=== PATIENT | male | born 1950 | race Caucasian/White ===

== ENCOUNTER 2018-04-23 21:08 | Inpatient (IN) | payer MEDICARE ==
[~2018-04-23] VITALS: Ht 162.6 cm; Wt 91.8 kg
--- NOTE | ~2018-04-23 | HEMODYNAMI ---
PATIENT:JANAY AUGUST MEDICAL RECORD: [id number] : 54 [id number] ADMISSION DATE: 04/23/18 Generatedon:04/24/20188:29 Patient name: JANAY AUGUST Patient #: [id number] SSN: : 1950 Date of study: 04/24/2018 Page: Of Hemodynamic Procedure Report Patient Data Patient Demographics Procedure consent was obtained First Name: JANAY Gender: Male Last Name: MATA : 1950 Middle Initial: L Age: 68 year(s) Patient #: [id number] Race: Unknown Additional ID: [id number] Contact details Address: [address] [place] [address] State: [place] City: [place] Zip code: [address] Admission Admission Data Admission Date: 04/23/2018 Admission Time: 22:45 Room #: D.2132 Weight (lbs.): 207.24 Weight (kg.): 94 Lab Results Lab Result Date: 04/24/2018 Lab Result Time: 0:00 Biochemistry Name Units Result Min Max BUN mg/dl 11 --(-*--)-- 7 18 Creatinine mg/dl 1 --(--*-)-- 0.6 1.3 CBC Name Units Result Min Max Hemoglobin g/dl 16.4 --(--*-)-- 13.5 17.5 Procedure Procedure Types Cath Procedure Diagnostic Procedure C LH w/Coronaries Sedation Charges Moderate Sedation up to 15 minutes Procedure Description Procedure Date Procedure Date: 04/24/2018 Procedure Start Time: 8:06 Procedure End Time: 8:29 Procedure Staff Name Function Manuel Emmanuel MD Performing Physician Do Galo RN Nurse Rick Hollins RT Scrub Bobby Noyola RT Monitor Ana Cates RT Monitor Procedure Data Cath Procedure Fluoroscopy Diagnostic fluoroscopy Total fluoroscopy Time: 3.3 time: 3.3 min min Diagnostic fluoroscopy Total fluoroscopy dose: 957 dose: 957 mGy mGy Contrast Material Contrast Material Type Amount (ml) Isovue 300 67 Entry Location Entry Primary Successful Side Size Upsize Upsize Entry Closure Yee ccessful Closure Location (Fr) 1 (Fr) 2 (Fr) Remarks Device Remarks Radial Right 6 Fr Mechanical artery Short Compression Estimated blood loss: 10 ml Diagnostic catheters Device Type Used For End Catheter Placement DIAGNOSTIC Al 110cm Procedure 5Fr catheter ([id number]) Procedure Complications No complications Procedure Medications Medication Administration Route Dosage 0.9% NaCl I.V. 100 ml/hr Oxygen etCO2 Nasal cannula 3 l/min Lidocaine 2% added to field 20 Heparin Flush Bag added to field 2 bags (1000units/500ml NS) Radial Cocktail added to field 1 syringe (Verapomil 2mg/Nitro 400mcg/Heparin 1500units) Versed I.V. 2 mg Fentanyl I.V. 50 mcg Versed I.V. 2 mg Fentanyl I.V. 50 mcg Hemodynamics Rest HGB: 16.4 (g/dl) Heart Rate: 69 (bpm) Pressure Samples Time Site Value (mmHg) Purpose Heart Use Rate(bpm) 8:09 AO 99/57(68) Pullback 88 Gradients Valve Time Site Site 2 Mean SEP/DFP Peak To Heart Use 1 (mmHg) (sec/min) Peak Rate (mmHg) (bpm) Aortic 8:09 LV AO 8 28 88 99/57(68) Calculations Valve P-P Mean Valve Index Valve Source Name Gradient Area Flow (cm2) Aortic 8 8 Snapshots Pre Cath Intra NCS Post Cath Vital Signs Time Heart Resp SPO2 etCO2 NIBP (mmHg) Rhythm Pain Sedation Rate (ipm) (%) (mmHg) Status Level (bpm) 7:55:02 67 24 98 33.1 155/94(118) NSR 0 (11) 10(A) , No pain 7:59:22 75 23 96 31.6 149/94(113) NSR 0 (11) 10(A) , No pain 8:03:38 77 16 97 33.9 145/92(115) NSR 0 (11) 10(A) , No pain 8:07:56 82 13 98 33.9 126/65(79) NSR 0 (11) 10(A) , No pain 8:12:14 83 15 98 33.9 120/71(88) NSR 0 (11) 9(A) , No pain 8:16:30 81 14 97 30.9 133/69(103) NSR 0 (11) 9(A) , No pain 8:20:50 76 14 97 30.1 121/70(95) NSR 0 (11) 10(A) , No pain 8:25:04 76 14 92 31.6 118/73(94) NSR 0 (11) 10(A) , No pain 8:29:16 71 15 93 30.9 120/77(98) NSR 0 (11) 10(A) , No pain Medications Time Medication Route Dose Verified Delivered Reason Notes Ef fectiveness by by 7:54:07 0.9% NaCl I.V. 100 Manuel Do used for ml/hr Cholo Galo energy broker 7:54:17 Oxygen etCO2 3 l/min Manuel Do used for Nasal Cholo Galo procedure cannula RN 7:54:22 Lidocaine 2% added 20ml Manuel Manuel for local to vial Cholo Emmanuel MD anesthetic field 7:54:26 Heparin Flush added 2 bags Manuel Manuel used for Bag to Cholo Emmanuel MD procedure (1000units/500ml field NS) 7:54:31 Radial Cocktail added 1 Manuel Manuel used for (Verapomil to syringe Cholo Emmanuel MD procedure 2mg/Nitro field 400mcg/Heparin 1500units) 8:01:18 Versed I.V. 2 mg Manuel Do for Cholo Galo sedation RN 8:01:24 Fentanyl I.V. 50 mcg Manuel Do for Cholo Galo sedation RN 8:09:04 Versed I.V. 2 mg Manuel Do for Cholo Galo sedation RN 8:09:10 Fentanyl I.V. 50 mcg Manuel Do for Cholo Galo sedation engagement lead Log Time Note 7:30:49 Bobby Noyola RT(R) sent for patient. Start room use. 7:35:51 Time tracking: Regular hours (M-F 7:00 - 5:00) 7:35:55 Plan of Care:Hemodynamics will remain stable., Cardiac rhythm will remain stable., Comfort level will be maintained., Respiratory function will remain adequate., Patient/ family verbilizes understanding of procedure., Procedure tolerated without complication., Recovers from procedure without complications.. 7:45:26 Patient received from Med II to CCL 1 Alert and oriented. Tansferred to table in Supine position. 7:45:28 Warm blankets applied, and nba hugger turned on for patient comfort. 7:45:28 Correct patient and procedure confirmed by team. 7:45:29 Signed procedure consent form obtained from patient. 7:45:31 ECG and BP/O2 sat monitors applied to patient. 7:45:35 Pre-procedure instructions explained to patient. 7:45:35 Pre-op teaching completed and patient verbalized understanding. 7:53:48 Vital chart was started 7:54:07 0.9% NaCl 100 ml/hr I.V. was administered by Do Galo RN; used for procedure; 7:54:17 Oxygen 3 l/min etCO2 Nasal cannula was administered by Do Galo RN; used for procedure; 7:54:22 Lidocaine 2% 20ml vial added to field was administered by Manuel Emmanuel MD; for local anesthetic; 7:54:26 Heparin Flush Bag (1000units/500ml NS) 2 bags added to field was administered by Manuel Emmanuel MD; used for procedure; 7:54:31 Radial Cocktail (Verapomil 2mg/Nitro 400mcg/Heparin 1500units) 1 syringe added to field was administered by Manuel Emmanuel MD; used for procedure; 7:54:43 Baseline sample Acquired. 7:54:54 Rhythm: sinus rhythm 7:55:42 H&P Date Dictated: 04/24/2018 New H&P dictated by physician.. 7:56:03 Family unavailable. 7:56:08 Patient NPO since Midnight. 7:56:14 Is the patient allergic to Iodine/contrast media? No. 7:56:53 Is patient on blood thinner?No 7:58:06 Patient diabetic? No. 7:58:08 Previous problem with sedation/anesthesia? No ? 7:58:09 Snore? No 7:58:10 Sleep apnea? No 7:58:11 Deviated septum? No 7:58:12 Opens mouth fully? Yes 7:58:13 Sticks out tongue? Yes 7:58:37 Airway obstruction? No PT DOES HAS A NOTICABLE SOB 7:58:40 Dentures? No ? 7:58:43 Pre procedure: right dorsailis pedis pulse 1+ Palpable, but thready & weak; easily obliterated 7:58:45 Modified Mau's test Ulnar < 7 seconds 7:58:50 Patient pain scale 0/10 ?. 7:59:03 IV patent on arrival in left forearm with 0.9% NaCl at KVO. 7:59:05 Lab results completed and on chart. 7:59:10 Right Radial & Right Groin area was prepped with chlora-prep and draped in sterile fashion 7:59:11 Alarms reviewed by R. N. 7:59:12 Sharps counted by scrub and verified by R.N. 7:59:14 --------ALL STOP TIME OUT------ 7:59:15 Final Timeout: patient, procedure, and site verified with staff and physician. All members of the team are in agreement. 7:59:22 Right Radial & Right Groin site verified by team. 7:59:35 Patient Weight : 207.24 lbs 8:00:27 Lab Result : Hemoglobin 16.4 g/dl 8:00:27 Lab Result : Creatinine 1 mg/dl 8:00:27 Lab Result : BUN 11 mg/dl 8:00:46 Maximum allowable Isovue 300 dose 96.6ml. Physician notified. (300ml for normal creatinines. For patients with creatinine of 1.7 or higher multiply weight x 5 divided by creatinine.) 8:00:50 Fire Safety Assessment: A--An alcohol-based skin anteseptic being used preoperatively., C--Open oxygen or nitrous oxide is being used., D--An ESU, laser, or fiber-optic light is being used. 8:00:54 Physical assessment completed. ASA score P 2 - A patient with mild systemic disease as per Manuel Emmanuel MD. 8:00:57 Sedation plan: IV Moderate Sedation Medication:Versed, Fentanyl 8:01:18 Versed 2 mg I.V. was administered by Do Galo RN; for sedation; 8:01:24 Fentanyl 50 mcg I.V. was administered by Do Galo RN; for sedation; 8:01:26 Use device set Radial Dx or PCI 8:01:31 Tegaderm 4 x 4 (5596W) opened to sterile field. 8:01:31 ACIST Manifold (83065) opened to sterile field. 8:01:32 ACIST Hand Control (63169) opened to sterile field. 8:01:33 ACIST Syringe (90800) opened to sterile field. 8:01:34 Medline Cath Pack ([id number]) opened to sterile field. 8:01:34 Bag Decanter () opened to sterile field. 8:01:34 DIAGNOSTIC WIRE .035 260cm J wire (003022) opened to sterile field. 8:01:35 MBrace Wrist Support ([id number]) opened to sterile field. 8:01:36 NEEDLE Cook 21G 4cm Radial (L11887) opened to sterile field. 8:01:37 SHEATH 6FR Slender (80-2880) opened to sterile field. 8:05:55 Procedure started. 8:05:55 Full Disclosure recording started 8:06:02 Local anesthetic to right radial artery with Lidocaine 2% by Manuel Emmanuel MD.INITIAL ACCESS ONLY 8:06:49 A 6 Fr Short sheath was inserted into the Right Radial artery 8:07:21 A DIAGNOSTIC Al 110cm 5Fr catheter ([id number]) was advanced over the wire and used for Procedure. 8:07:28 Zero performed for pressure channel P1 8:08:49 Zero performed for pressure channel P1 8:09:04 Versed 2 mg I.V. was administered by Do Galo RN; for sedation; 8:09:10 Fentanyl 50 mcg I.V. was administered by Do Galo RN; for sedation; 8:09:33 LV angiography performed. 8:09:44 LV gram done using CHIANG 8:09:51 EF : 50 % 8:09:52 LV hemodynamics recorded. 8::55 Injector settings: Ml/sec: 7, Volume: 15, 8:11:23 LCA angiography performed. 8:12:59 RCA angiography performed. 8:18:50 Catheter removed. 8:18:53 TR BAND Standard ([id number]) opened to sterile field. 8:24:28 Sheath removed intact; hemostasis achieved with Mechanical Compression to the Right Radial artery. 8:24:52 Procedure ended.(Physican Out) 8:25:25 Fluoroscopy time 03.30 minutes. 8::31 Fluoroscopy dose: 957 mGy 8:25:31 Flurop Dose total: 957 8:25:45 Contrast amount:Isovue 300 67ml. 8:25:47 Sharps counted by scrub and verified by R.N. 8:25:52 TR band inflated with 9cc of air. 8:25:55 Insertion/operative site no bleeding no hematoma. 8:26:25 Post right radial artery:stable 8:26:27 Post Procedure Pulses reassessed and unchanged 8:26:32 Post-procedure physical assessment completed. ASA score P 2 - A patient with mild systemic disease as per Manuel Emmanuel MD. 8:27:14 Post procedure rhythm: unchanged. 8:27:17 Estimated blood loss: 10 ml 8:27:19 Post procedure instruction explained to patient.Patient verbalizes understanding. 8:28:05 Procedure type changed to Cath procedure, Diagnostic procedure, LHC, LHC w/Coronaries, Sedation Charges, Moderate Sedation up to 15 minutes 8:28:08 Procedure and supply charges have been captured, reviewed, submitted and are correct. 8:28:37 Procedure Complication : No complications 8:28:40 Vital chart was stopped 8:28:41 See physician's report for complete and final results. 8:28:43 Report given to Med II. 8:28:52 Patient transfered to Med II with Bed. 8:29:06 Procedure ended. 8:29:06 Full Disclosure recording stopped 8:29:13 End room use (Document Last) Device Usage Item Name Manufacture Quantity Catalog Hospital Part Current Minimal Lot# / Number Charge Number Stock Stock Serial# Code Tegaderm 4 3M 1 1626W 108073 897807 887224 5 x 4 (1626W) ACIST Acist 1 61111 177008 970227 001415 5 Manifold Medical (68972) Systems Inc ACIST Hand Acist 1 96529 059930 113582 421937 5 Control Medical (81982) Systems Inc ACIST Acist 1 74636 272632 954863 503769 20 Syringe Medical (19300) Systems Inc Medline Medline 1 [id number] 317549 81082 753661 5 Cath Pack ([id number]) Bag Microtek 1 2001S 964533 37530 552009 5 Decanter Medical Inc. () DIAGNOSTIC St Subhash 1 403114 616611 214867 856524 30 WIRE .035 260cm J wire (297180) MBrace Advanced 1 140-0250-00 741488 46378 667090 5 Wrist Vascular Support Dynamics ([id number]) NEEDLE Cook Cook Medical 1 C52134 178536 352153 039005 5 21G 4cm Radial (R70989) SHEATH 6FR Terumo 1 [id number] 884450 903572 975865 5 Slender (801060) DIAGNOSTIC Terumo 1 40-0236 241565 875526 455458 5 Al 110cm 5Fr catheter (867344) TR BAND Terumo 1 [id number] 373384 751708 506594 40 Standard ([id number]) Signature Audit Milo Stage Time Signature Unsigned Intra-Procedure 04/24/2018 Ana Cates 8:29:47 AM RT(R) Signatures Monitor : Bobby Noyola RT Signature : Date : Time : Monitor : Ana Cates Signature : RT Date : Time : [place] [address] [place] [address]
[2018-04-23] MEDS ORDERED: UNK BP MED (21:11)
[2018-04-23] MEDS ORDERED: UNK INHALER (21:12)
[2018-04-23 22:36] LABS: BASOPHILS 0.2 % (0-2); EOSINOPHILS 1.2 % (0-7); HEMATOCRIT 48.5 % (42.0-54.0); HEMOGLOBIN 16.4 g/dL (13.5-17.5); IMMATURE GRANULOCYTES 0.8 % (0-5); LYMPHOCYTES 16.6 % (15-50); MCH 29.7 pg (26.0-34.0); MCHC 33.8 g/dL (31.0-37.0); MCV 87.7 fL (80.0-100.0); MEAN PLATELET VOLUME 9.1 fL (7.4-10.4); MONOCYTES 9.5 % (2-11); NEUTROPHILS 71.7 % (40-80); PLATELET COUNT 140 10x3/uL (130-400); RBC 5.53 10x6/uL (4.20-6.10); RDW 13.5 % (11.5-14.5); WBC 6.5 10x3/uL (4.8-10.8)
[2018-04-23 22:37] VITALS: BP 162/97
[2018-04-23 23:00] LABS: ALBUMIN 3.4 g/dL (3.4-5.0); ALKALINE PHOSPHATASE 99 U/L (46-116); ALT (SGPT) 26 U/L (10-68); BILIRUBIN - TOTAL 0.27 mg/dL (0.2-1.3); CALC OSMOLALITY 276 mosm/kg (275-300); CARBON DIOXIDE 28.8 mmol/L (21.0-32.0); CHLORIDE - SERUM 102 mmol/L (98-107); GLUCOSE 100 mg/dL (74-106); POTASSIUM - SERUM 4.4 mmol/L (3.5-5.1); SODIUM 139 mmol/L (136-145); UREA NITROGEN 11 mg/dL (7-18); eGFR NON AFRICAN AMERICAN 79 mL/min (90-120)
[2018-04-23 23:10] LABS: LIPASE 228 U/L (73-393); PRO BNP 148 pg/mL (0-125)
[2018-04-23 23:21] LABS: TROPONIN-I 0.412 ng/mL (0.000-0.060)
[2018-04-24] VITALS: BP 172/103
[2018-04-24 00:48] LABS: APTT 29.1 SECONDS (22.8-39.4); INR 0.98 (0.85-1.17); PROTIME 12.5 SECONDS (11.6-15.0)
[2018-04-24 04:00] VITALS: BP 120/65
[2018-04-24 07:09] LABS: BASOPHILS 0.1 % (0-2); EOSINOPHILS 0.7 % (0-7); HEMATOCRIT 49.1 % (42.0-54.0); HEMOGLOBIN 16.3 g/dL (13.5-17.5); IMMATURE GRANULOCYTES 0.6 % (0-5); LYMPHOCYTES 17.3 % (15-50); MCH 29.5 pg (26.0-34.0); MCHC 33.2 g/dL (31.0-37.0); MCV 88.9 fL (80.0-100.0); MEAN PLATELET VOLUME 9.2 fL (7.4-10.4); MONOCYTES 8.2 % (2-11); NEUTROPHILS 73.1 % (40-80); PLATELET COUNT 149 10x3/uL (130-400); RBC 5.52 10x6/uL (4.20-6.10); RDW 13.7 % (11.5-14.5); WBC 6.9 10x3/uL (4.8-10.8)
[2018-04-24 07:16] VITALS: BP 172/103; BMI 35.6
[2018-04-24 07:20] LABS: ANION GAP 13.4 mmol/L (8-16); CALCIUM 8.2 mg/dL (8.5-10.1); CARBON DIOXIDE 28.1 mmol/L (21.0-32.0); CREATININE - SERUM 1.1 mg/dL (0.6-1.3); POTASSIUM - SERUM 4.5 mmol/L (3.5-5.1)
[2018-04-24 09:30] LABS: PLT FUNCT.(P2Y12) PLAVIX 224 PRU (194-418)
[2018-04-24 10:37] VITALS: BMI 35.5
[2018-04-24 12:40] VITALS: BP 126/73
[2018-04-24 14:43] VITALS: Ht 162.6 cm; Wt 91.8 kg
[2018-04-24] MEDS ORDERED: LISINOPRIL10 MG PO (15:40)
[2018-04-24] MEDS ORDERED: FLOMAX0.4 MG PO (15:42)
[2018-04-24] MEDS ORDERED: COREG 3.1253.125 MG PO (15:42)
[2018-04-24] MEDS ORDERED: ZANAFLEX4 MG PO (15:50)
[2018-04-24] MEDS ORDERED: OMEPRAZOLE20 M1 PO (15:52)
[2018-04-24] MEDS ORDERED: LIPITOR80 MG PO (15:53)
[2018-04-24] MEDS ORDERED: SEROQUEL50 MG PO (15:54)
[2018-04-24 15:57] LABS: BASOPHILS 0.1 % (0-2); EOSINOPHILS 1.8 % (0-7); HEMOGLOBIN 16.2 g/dL (13.5-17.5); IMMATURE GRANULOCYTES 0.6 % (0-5); LYMPHOCYTES 23.3 % (15-50); MCH 29.3 pg (26.0-34.0); MCHC 33.8 g/dL (31.0-37.0); MEAN PLATELET VOLUME 9.1 fL (7.4-10.4); MONOCYTES 8.8 % (2-11); NEUTROPHILS 65.4 % (40-80); PLATELET COUNT 143 10x3/uL (130-400); RBC 5.52 10x6/uL (4.20-6.10); RDW 13.5 % (11.5-14.5); WBC 7.2 10x3/uL (4.8-10.8)
[2018-04-24 16:13] LABS: PHOSPHOROUS 3.4 mg/dL (2.5-4.9); T4 THYROXIN - FREE 0.73 ng/dL (0.76-1.46); THYROID STIMULATING HORMONE 3.29 uIU/mL (0.36-3.74); URIC ACID 4.5 mg/dL (2.6-7.2)
[2018-04-24 16:33] LABS: INR 1.03 (0.85-1.17)
[2018-04-24 16:35] LABS: APTT 44.4 SECONDS (22.8-39.4)
[2018-04-24 16:42] VITALS: BP 118/65
--- NOTE | 2018-04-24 16:49 | MORECARE ---
CASE MANAGEMENT DISCHARGE SUMMARY PATIENT: JANAY AUGUST UNIT: [id number] ADM DATE: 04/24/18 AGE: 68 : 52 SEX: M ROOM/BED: D.2132 AUTHOR: AYDE GOLD PHYSICIAN: REFERRING PHYSICIAN: NOAH JIMÉNEZ MD DATE OF SERVICE: 04/24/18 Discharge Plan Patient Name: JANAY AUGUST Facility: [facility]:[place] : 1950 Planned Disposition: Home Anticipated Discharge Date: Discharge Date: Expected LOS: Initial Reviewer: [email or web address] Initial Review Date: 04/24/2018 Generated: 04/24/18 5:48 pm Patient Name: JANAY AUGUST Page [id number] at 1649 All edits/amendments must be made on the electronic document DICTATION DATE: 04/24/181647 ASSISTANT PROFESSOR SCULPTURE: BARRY 04/24/181647 RPT#: [id number] DC DATE: STATUS: ADM IN [facility] [address] [place] [address] END OF REPORT
--- NOTE | 2018-04-24 16:55 | MORECARE ---
CASE MANAGEMENT DISCHARGE SUMMARY PATIENT: JANAY AUGUST UNIT: [id number] ADM DATE: 04/24/18 AGE: 68 : 52 SEX: M ROOM/BED: D.2132 AUTHOR: AYDE GOLD PHYSICIAN: REFERRING PHYSICIAN: NOAH JIMÉNEZ MD DATE OF SERVICE: 04/24/18 Discharge Plan Patient Name: JANAY AUGUST [facility] [facility] 1950 Planned Disposition: Home Anticipated Discharge Date: Discharge Date: Expected LOS: Initial Reviewer: [email or web address] Initial Review Date: 04/24/2018 Generated: 04/24/18 5:55 pm DCPIA - Discharge Planning Initial Assessment Updated by [email or web address]: Kurtis Calderón on 04/24/18 4:54 pm * Is the patient Alert and Oriented? Yes * How many steps to enter\exit or inside your home? * PCP DR. RIVERA * Pharmacy [facility] * Preadmission Environment Home Alone * ADLs Independent * Equipment Cane * Other Equipment NONE * List name and contact numbers for known caregivers / representatives who currently or will assist patient after discharge: JASON HEIN, * Verbal permission to speak to the caregivers and representatives has been obtained from the patient. N/A * Community resources currently utilized None * Please name any agencies selected above. NONE * Additional services required to return to the preadmission environment? No * Can the patient safely return to the preadmission environment? Yes * Has this patient been hospitalized within the prior 30 days at any hospital? No Last DP export: 04/24/18 3:49 pm Patient Name: JANAY AUGUST Page [id number] at 1655 All edits/amendments must be made on the electronic document DICTATION DATE: 04/24/181654 SALES CORRESPONDENT: BARRY 04/24/181654 RPT#: [id number] DC DATE: STATUS: ADM IN [facility] [address] [place] [address] END OF REPORT
--- NOTE | 2018-04-24 17:04 | MORECARE ---
CASE MANAGEMENT DISCHARGE SUMMARY PATIENT: JANAY AUGUST UNIT: [id number] ADM DATE: 04/24/18 AGE: 68 : 52 SEX: M ROOM/BED: D.2262 AUTHOR: ALLA,DOC PHYSICIAN: REFERRING PHYSICIAN: NOAH JIMÉNEZ MD DATE OF SERVICE: 04/24/18 Discharge Plan Patient Name: JANAY AUGUST Facility: [facility]:[place] : 1950 Planned Disposition: Home Anticipated Discharge Date: Discharge Date: Expected LOS: Initial Reviewer: [email or web address] Initial Review Date: 04/24/2018 Generated: 04/24/18 6:04 pm Comments DCP- Discharge Planning Updated by [email or web address]: Kurtis Calderón on 04/24/18 3:[address] Patient Name: JANAY AUGUST Admission Status: ER Accout number: [id number] Admission Date: 04-24-2018 : 1950 Admission Diagnosis: Attending: NOAH JIMÉNEZ Current LOS: 1 Anticipated DC Date: Planned Disposition: Home Primary Insurance: MEDICARE A & B Discharge Planning Comments: CM RECEIVED ORDER FOR "GET POA FOR PT WITH HIS BROTHER TODAY." CM MET WITH PT IN ROOM TO DISCUSS DISCHARGE PLANNING AND NEEDS. PT REPORTS LIVING AT HOME INDEPENDENTLY AND ALONE. PT HAS A CANE HE USES "SOMETIMES" AND NO MEDICAL EQUIPMENT PROVIDER PREFERENCE. PT HAS NO OUTSIDE SERVICES ASSISTING IN THE HOME. CM DISCUSSED AVAILABILITY OF HOME HEALTH, REHAB SERVICES AND MEDICAL EQUIPMENT. PT DENIES DISCHARGE NEEDS AT THIS TIME, REPORTS PLAN TO RETURN HOME ALONE, REPORTS HIS JASON WILL PICK HIM UP FOR DISCHARGE HOME. PT IS HAVING OPEN HEART SURGERY IN THE MORNING AND WANTS TO NAME HIS NEICESHAKIR POWER OF SURGICAL SPECIALIST IN CASE IT IS NEEDED. CM ASSISTED PT WITH COMPLETING MEDICAL POWER OF SURGICAL SPECIALIST AND HAVING IT NOTARIZED. COPY TO CHART, ORIGINAL TO PT. PT PLANS TO DISCHARGE HOME ALONE, FAMILY TO TRANSPORT, NO KNOWN DISCHARGE NEEDS AT THIS TIME. POA COMPLETED AND IN CHART. CM TO FOLLOW AND ASSIST IF NEEDED. Assembler Unit: Kurtis Calderón DCPIA - Discharge Planning Initial Assessment Updated by [id number]: Kurtis Calderón on 04/24/18 4:54 pm * Is the patient Alert and Oriented? Yes * How many steps to enter\\exit or inside your home? * PCP DR. RIVERA * Pharmacy [facility] * Preadmission Environment Home Alone * ADLs Independent * Equipment Cane * Other Equipment NONE * List name and contact numbers for known caregivers / representatives who currently or will assist patient after discharge: SHAKIR ALEXOPHELIA IVYLULU, * Verbal permission to speak to the caregivers and representatives has been obtained from the patient. N/A * Community resources currently utilized None * Please name any agencies selected above. NONE * Additional services required to return to the preadmission environment? No * Can the patient safely return to the preadmission environment? Yes * Has this patient been hospitalized within the prior 30 days at any hospital? No Last DP export: 04/24/18 3:55 pm Patient Name: JANAY AUGUST Page [phone] at 1704 All edits/amendments must be made on the electronic document DICTATION DATE: 04/24/181703 FACULTY SUPPORT COORDINATOR: BARRY 04/24/181703 RPT#: [id number] DC DATE: STATUS: ADM IN [facility] [address] [place] [address] END OF REPORT
[2018-04-24 17:12] LABS: APPEARANCE CLEAR (CLEAR); BILIRUBIN NEGATIVE (NEGATIVE); COLOR YELLOW (YELLOW); GLUCOSE NEGATIVE (NEGATIVE); KETONE NEGATIVE (NEGATIVE); NITRITE NEGATIVE (NEGATIVE); PROTEIN NEGATIVE (NEGATIVE); SPECIFIC GRAVITY 1.015 (1.005-1.020); UROBILINOGEN NORMAL (NORMAL)
[2018-04-24 20:00] VITALS: BP 142/87
[2018-04-25] VITALS (38 sets, daily range): BP systolic 89–148; BP diastolic 46–78
[2018-04-25 01:27] LABS: HEMATOCRIT 47.3 % (42.0-54.0); HEMOGLOBIN 15.9 g/dL (13.5-17.5); LYMPHOCYTES 31.7 % (15-50); MCH 29.2 pg (26.0-34.0); MCHC 33.6 g/dL (31.0-37.0); MCV 86.9 fL (80.0-100.0); MEAN PLATELET VOLUME 7.8 fL (7.4-10.4); NEUTROPHILS 61.6 % (40-80); PLATELET COUNT 128 10x3/uL (130-400); RBC 5.44 10x6/uL (4.20-6.10); RDW 13.8 % (11.5-14.5); WBC 5.3 10x3/uL (4.8-10.8)
[2018-04-25 01:41] LABS: ALBUMIN 3.2 g/dL (3.4-5.0); ANION GAP 15.7 mmol/L (8-16); BILIRUBIN - TOTAL 0.45 mg/dL (0.2-1.3); CALCIUM 8.2 mg/dL (8.5-10.1); CARBON DIOXIDE 23.4 mmol/L (21.0-32.0); CREATININE - SERUM 1.1 mg/dL (0.6-1.3); POTASSIUM - SERUM 4.1 mmol/L (3.5-5.1); PROTEIN - SERUM 6.6 g/dL (6.4-8.2)
[2018-04-25 06:03] LABS: BASOPHILS 0.2 % (0-2); EOSINOPHILS 2.1 % (0-7); MONOCYTES 9.9 % (2-11)
[2018-04-26] VITALS (49 sets, daily range): BP systolic 101–159; BP diastolic 57–90
[2018-04-26 06:25] LABS: BASOPHILS 0 % (0-2); EOSINOPHILS 0 % (0-7); HEMATOCRIT 43.6 % (42.0-54.0); IMMATURE GRANULOCYTES 0.3 % (0-5); LYMPHOCYTES 5.7 % (15-50); MCH 28.4 pg (26.0-34.0); MCHC 32.1 g/dL (31.0-37.0); MCV 88.4 fL (80.0-100.0); MEAN PLATELET VOLUME 9.1 fL (7.4-10.4); MONOCYTES 8.2 % (2-11); NEUTROPHILS 85.8 % (40-80); RBC 4.93 10x6/uL (4.20-6.10); RDW 14.1 % (11.5-14.5)
[2018-04-26 06:28] LABS: PLATELET COUNT 98 10x3/uL (130-400); WBC 12.4 10x3/uL (4.8-10.8)
[2018-04-26 06:59] LABS: BILIRUBIN - TOTAL 0.71 mg/dL (0.2-1.3); CARBON DIOXIDE 26.6 mmol/L (21.0-32.0); CREATININE - SERUM 1.3 mg/dL (0.6-1.3); MAGNESIUM - SERUM 2.2 mg/dL (1.8-2.4); POTASSIUM - SERUM 4.6 mmol/L (3.5-5.1); PROTEIN - SERUM 5.8 g/dL (6.4-8.2)
[2018-04-26 08:52] LABS: PLATELET ESTIMATE DECREASED
[2018-04-26] MEDS ORDERED: COREG 3.1253.125 MG PO (10:44)
[2018-04-27] VITALS (24 sets, daily range): BP systolic 94–146; BP diastolic 49–100
[2018-04-27 05:51] LABS: BASOPHILS 0 % (0-2); EOSINOPHILS 0.1 % (0-7); HEMATOCRIT 42.4 % (42.0-54.0); IMMATURE GRANULOCYTES 0.4 % (0-5); LYMPHOCYTES 4.2 % (15-50); MCV 87.8 fL (80.0-100.0); MEAN PLATELET VOLUME 9.2 fL (7.4-10.4); MONOCYTES 6.2 % (2-11); NEUTROPHILS 89.1 % (40-80); PLATELET COUNT 83 10x3/uL (130-400); RBC 4.83 10x6/uL (4.20-6.10); RDW 13.7 % (11.5-14.5); WBC 13.5 10x3/uL (4.8-10.8)
[2018-04-27 06:22] LABS: ALBUMIN 2.8 g/dL (3.4-5.0); ANION GAP 12.6 mmol/L (8-16); BILIRUBIN - TOTAL 0.95 mg/dL (0.2-1.3); CALCIUM 7.4 mg/dL (8.5-10.1); CARBON DIOXIDE 26.4 mmol/L (21.0-32.0); CREATININE - SERUM 1.1 mg/dL (0.6-1.3); MAGNESIUM - SERUM 2.1 mg/dL (1.8-2.4); PROTEIN - SERUM 6.2 g/dL (6.4-8.2)
[2018-04-28] VITALS (20 sets, daily range): BP systolic 93–157; BP diastolic 44–88
[2018-04-28 05:33] LABS: BASOPHILS 0 % (0-2); EOSINOPHILS 0.2 % (0-7); HEMATOCRIT 39.1 % (42.0-54.0); IMMATURE GRANULOCYTES 0.3 % (0-5); LYMPHOCYTES 6.1 % (15-50); MCHC 33.2 g/dL (31.0-37.0); MCV 87.3 fL (80.0-100.0); NEUTROPHILS 86.4 % (40-80); PLATELET COUNT 85 10x3/uL (130-400); RBC 4.48 10x6/uL (4.20-6.10); RDW 13.5 % (11.5-14.5)
[2018-04-28 05:41] LABS: WBC 9.2 10x3/uL (4.8-10.8)
[2018-04-28 05:52] LABS: ALBUMIN 2.7 g/dL (3.4-5.0); ANION GAP 11.8 mmol/L (8-16); BILIRUBIN - TOTAL 0.82 mg/dL (0.2-1.3); CALCIUM 7.8 mg/dL (8.5-10.1); CARBON DIOXIDE 27.2 mmol/L (21.0-32.0); CREATININE - SERUM 1.3 mg/dL (0.6-1.3); MAGNESIUM - SERUM 2.3 mg/dL (1.8-2.4); PROTEIN - SERUM 6.2 g/dL (6.4-8.2)
--- NOTE | 2018-04-28 10:55 | TEE ---
PATIENT:JANAY AUGUST MEDICAL RECORD: [id number] LOCATION:[place] [address] AGE OF PATIENT: 68 ADMISSION DATE: 04/24/18 SEX: M REFERRING PHYSICIAN: INTERPRETING PHYSICIAN: KITA GARVIN MD TRANSESOPHAGEAL ECHOCARDIOGRAM Date: 04/25/18 ANÍBAL CHARGE Y INDICATIONS: CABG PREMEDICATIONS: PATIENT'S RESPONSE PROCEDURE DOPPLER MEASUREMENTS: LVIT LA PA 112 RA LVOT 133 RVOT 59.0 Asc. Ao 141 AV Gradient Peak 8.0 AV Mean 5.3 AV Area 3.0 MV Gradient Peak 5.5 MV Mean 1.5 MV Area INTERPRETATION: LVd: 3.6 cm LVs: 2.0 cm Doppler: 2-D: COLOR FLOW DOPPLER NORMAL SALINE STUDY: MISCELLANOUS: DIAGNOSIS: PLAN: Full Charge Bookkeeper:Kayla Emmanuel Field Sales Executive: Jose L BARRERA COMMENTS: DATE OF SERVICE: 04/25/2018 PROCEDURE: Transesophageal echo evaluation of valvular structures during bypass surgery. FINDINGS: 1. Left ventricular chamber size is within normal limits. Left ventricular systolic function is normal. Overall ejection fraction estimated at 55% to 60%. 2. Left atrium, right atrium, and right ventricular chamber sizes are mildly TRANSESOPHAGEAL ECHOCARDIOGRAM REPORT [id number] JANAY AUGUST dilated. 3. Valvular structures have normal structure and motion. 4. Doppler interrogation reveals moderate mitral regurgitation, bumk-ty-ndmqfals aortic insufficiency. No other valvular insufficiency or stenosis. 5. No evidence of pericardial effusion or left ventricular thrombus. TRANSINT:[id number] Voice Confirmation ID: [id number] DOCUMENT ID: [id number] 1055 CC: [id number] DICTATION DATE: 04/26/18 1015 COMPENSATION AND BENEFITS MANAGER: 04/27/18 0844 ADM IN [place] [address] [place] [address]
[2018-04-29] VITALS (20 sets, daily range): BP systolic 103–147; BP diastolic 49–91
[2018-04-29 07:49] LABS: ALBUMIN 2.6 g/dL (3.4-5.0); ANION GAP 11.4 mmol/L (8-16); BILIRUBIN - TOTAL 0.69 mg/dL (0.2-1.3); CALCIUM 7.2 mg/dL (8.5-10.1); CREATININE - SERUM 1.1 mg/dL (0.6-1.3); MAGNESIUM - SERUM 2.3 mg/dL (1.8-2.4); POTASSIUM - SERUM 4.4 mmol/L (3.5-5.1); PROTEIN - SERUM 5.6 g/dL (6.4-8.2)
[2018-04-29 08:17] LABS: BASOPHILS 0 % (0-2); EOSINOPHILS 1.3 % (0-7); HEMATOCRIT 39.3 % (42.0-54.0); HEMOGLOBIN 12.8 g/dL (13.5-17.5); IMMATURE GRANULOCYTES 0.4 % (0-5); LYMPHOCYTES 11.5 % (15-50); MCH 28.7 pg (26.0-34.0); MCHC 32.6 g/dL (31.0-37.0); MCV 88.1 fL (80.0-100.0); MEAN PLATELET VOLUME 9.4 fL (7.4-10.4); MONOCYTES 13.3 % (2-11); NEUTROPHILS 73.5 % (40-80); PLATELET COUNT 139 10x3/uL (130-400); RBC 4.46 10x6/uL (4.20-6.10); RDW 13.8 % (11.5-14.5); WBC 4.5 10x3/uL (4.8-10.8)
[2018-04-30] VITALS (23 sets, daily range): BP systolic 101–142; BP diastolic 62–81
[2018-04-30 06:17] LABS: HEMATOCRIT 38.5 % (42.0-54.0); HEMOGLOBIN 12.5 g/dL (13.5-17.5); MCH 28.7 pg (26.0-34.0); MCHC 32.5 g/dL (31.0-37.0); MCV 88.3 fL (80.0-100.0); MEAN PLATELET VOLUME 8.6 fL (7.4-10.4); RBC 4.36 10x6/uL (4.20-6.10); RDW 13.9 % (11.5-14.5)
[2018-04-30 06:20] LABS: ALBUMIN 2.3 g/dL (3.4-5.0); ALKALINE PHOSPHATASE 28 U/L (46-116); ALT (SGPT) 45 U/L (10-68); BILIRUBIN - TOTAL 0.59 mg/dL (0.2-1.3); CALC OSMOLALITY 270 mosm/kg (275-300); CALCIUM 7.6 mg/dL (8.5-10.1); CARBON DIOXIDE 26.4 mmol/L (21.0-32.0); CHLORIDE - SERUM 101 mmol/L (98-107); GLUCOSE 96 mg/dL (74-106); POTASSIUM - SERUM 4.4 mmol/L (3.5-5.1); PROTEIN - SERUM 5.9 g/dL (6.4-8.2); SODIUM 135 mmol/L (136-145); UREA NITROGEN 15 mg/dL (7-18); eGFR NON AFRICAN AMERICAN 79 mL/min (90-120)
[2018-04-30 06:29] LABS: WBC 6.2 10x3/uL (4.8-10.8)
[2018-05-01] VITALS (26 sets, daily range): BP systolic 111–157; BP diastolic 53–89
[2018-05-02] VITALS (15 sets, daily range): BP systolic 109–135; BP diastolic 64–80
[2018-05-02 06:41] LABS: CALC OSMOLALITY 269 mosm/kg (275-300); CALCIUM 7.7 mg/dL (8.5-10.1); CARBON DIOXIDE 24.6 mmol/L (21.0-32.0); CHLORIDE - SERUM 102 mmol/L (98-107); GLUCOSE 108 mg/dL (74-106); POTASSIUM - SERUM 3.8 mmol/L (3.5-5.1); SODIUM 135 mmol/L (136-145); UREA NITROGEN 11 mg/dL (7-18); eGFR NON AFRICAN AMERICAN 79 mL/min (90-120)
[2018-05-02 06:59] LABS: BASOPHILS 0.1 % (0-2); EOSINOPHILS 1.8 % (0-7); HEMATOCRIT 40.1 % (42.0-54.0); HEMOGLOBIN 13.2 g/dL (13.5-17.5); IMMATURE GRANULOCYTES 1.5 % (0-5); LYMPHOCYTES 8.3 % (15-50); MCH 28.8 pg (26.0-34.0); MCHC 32.9 g/dL (31.0-37.0); MCV 87.6 fL (80.0-100.0); MEAN PLATELET VOLUME 8.8 fL (7.4-10.4); MONOCYTES 9.9 % (2-11); NEUTROPHILS 78.4 % (40-80); RBC 4.58 10x6/uL (4.20-6.10); RDW 13.6 % (11.5-14.5); WBC 7.3 10x3/uL (4.8-10.8)
[2018-05-02 07:11] LABS: PLATELET COUNT 195 10x3/uL (130-400)
[2018-05-03] VITALS (18 sets, daily range): BP systolic 92–126; BP diastolic 50–69
--- NOTE | 2018-05-03 13:30 | OP ---
PATIENT NAME: JANAY AUGUST MEDICAL RECORD: [id number] :54 LOCATION:D.CVI D.CV08 ADMISSION DATE:04/24/18 SURGEON: MAXI DOS SANTOS MD DATE OF OPERATION: 04/25/2018 SURGEON: Maxi Dos Santos MD DISCHARGE COORDINATOR: YULISSA France MD and Enmanuel Martínez OPERATION PERFORMED: 1. Coronary artery bypass graft times 5 (left internal mammary to LAD, reverse saphenous vein graft from aorta to first diagonal, aorta to obtuse marginal, aorta to posterior descending artery and from the side of that vein graft to the posterolateral branch of the right coronary artery distally). 2. Endoscopic saphenous vein harvest. PREOPERATIVE DIAGNOSIS: Coronary artery disease with unstable angina. POSTOPERATIVE DIAGNOSES: Coronary artery disease with unstable angina, aortic insufficiency and mitral regurgitation. ANESTHESIA: General endotracheal anesthesia. ESTIMATED BLOOD LOSS: Total cardiopulmonary bypass with Cell Saver retransfusion. COMPLICATIONS: None. SPECIMENS: None. CONDITION: Stable. DISPOSITION: ICU. OPERATIVE FINDINGS: 1. Good quality greater saphenous vein harvested endoscopically from the right thigh with 2 bridging incisions in the lower leg. 2. Transesophageal echocardiography confirmed trace aortic insufficiency, 1+ mitral regurgitation briefly increased after cardiopulmonary bypass. 3. The patient had a large fatty heart. 4. Good quality internal mammary artery, skeletonizing the last 3 cm to allow it to reach the LAD, which was a 1.5 mm vessel with mild tortuosity. 5. First diagonal 1.5 mm. 6. Obtuse marginal 1.5 mm. 7. Posterior descending artery 2.0 mm. 8. Posterolateral branch right coronary 1.5 mm. The proximal end of this graft was anastomosed to the side of the right coronary artery as the proximal portion of this graft was the portion of the vein from the lower leg, it was slightly smaller. 9. A 4.4 cm ascending aorta with normal wall thickness. OPERATIVE INDICATION: Unstable angina. PROCEDURE IN DETAIL: The patient was brought to the operative suite. General anesthesia was obtained. The patient prepped and draped. Greater saphenous OPERATIVE REPORT [id number] JANAY AUGUST vein was harvested from right lower extremity utilizing endoscopic technique. Side branches were divided with electrocautery. The vessel ligated proximally and distally, removed. Side branches were clipped. This portion of the surgery was performed by Dr. France, the review assistant surgeon. He tied the side branches and oversewed any thin sites or leakage sites. The utilization of an review assistant surgeon saved approximately 45 minutes of general anesthetic time. Leg was later irrigated and closed in 2 layers and wrapped with elastic wrap. Median sternotomy incision was made. Subcutaneous tissue was divided by electrocautery. The sternum was divided with a saw. The left hemisternum was elevated. Left pleural cavity was entered. Left internal mammary vein was taken as a pedicle graft. Sternal retractor was placed. Pericardium was opened. Heparin was given. The aorta was cannulated. Dual stage venous cannula was inserted. The internal mammary was made ready for anastomosis. The patient was placed on cardiopulmonary bypass. Sites for distal anastomosis were selected. Retrograde and antegrade cardioplegic cannulas were inserted. The patient was cooled. Crossclamp was placed. Cardioplegia was given antegrade and retrograde and this was repeated at 15 to 20 minute intervals including down the completed vein grafts. Distal anastomosis was performed in standard technique. Proximal anastomosis with single cross-clamp technique, [id number] anastomosis performed. The patient was fully rewarmed, normal sinus rhythm weaned from cardiopulmonary bypass and was stable. The patient was decannulated. The cannula sites were oversewn. Protamine was given. Thorough irrigation was undertaken. All graft lay appropriately. Left chest was evacuated and irrigated. Atrioventricular pacing wires were placed. The drain was placed in the mediastinum and left pleural cavity. Pericardial fat was loosely reapproximated. The internal mammary harvest site was ensured to be hemostatic. Sternum was closed with wires and prior to closing the chest, hemostatic foam was used along either side. Fascia was closed. Subcutaneous tissue was closed. Skin was closed. Dermabond was placed. The needle and sponge counts were reported as correct and the patient was taken to ICU in stable condition. TRANSINT:[id number] Voice Confirmation ID: [id number] DOCUMENT ID: [id number] MAXI DOS SANTOS MD at 1330 CC: JASEN MENDEZ M.D. [id number] DICTATION DATE: 04/25/18 1608 BILINGUAL TEACHER: 04/25/18 2312 ADM IN [place] [address] [place] [address]
[2018-05-04] VITALS (13 sets, daily range): BP systolic 90–116; BP diastolic 48–64
[2018-05-04 05:56] LABS: BASOPHILS 0.2 % (0-2); HEMATOCRIT 38.6 % (42.0-54.0); HEMOGLOBIN 12.5 g/dL (13.5-17.5); IMMATURE GRANULOCYTES 2.4 % (0-5); LYMPHOCYTES 17.7 % (15-50); MCH 28.3 pg (26.0-34.0); MCHC 32.4 g/dL (31.0-37.0); MCV 87.3 fL (80.0-100.0); MEAN PLATELET VOLUME 8.4 fL (7.4-10.4); MONOCYTES 10.4 % (2-11); NEUTROPHILS 67.3 % (40-80); PLATELET COUNT 191 10x3/uL (130-400); RBC 4.42 10x6/uL (4.20-6.10); RDW 13.5 % (11.5-14.5); WBC 6.6 10x3/uL (4.8-10.8)
[2018-05-04 06:27] LABS: ALBUMIN 2.3 g/dL (3.4-5.0); ANION GAP 9.6 mmol/L (8-16); BILIRUBIN - TOTAL 0.51 mg/dL (0.2-1.3); CALCIUM 7.8 mg/dL (8.5-10.1); CARBON DIOXIDE 27.2 mmol/L (21.0-32.0); CREATININE - SERUM 1.1 mg/dL (0.6-1.3); POTASSIUM - SERUM 3.8 mmol/L (3.5-5.1)
[2018-05-05] VITALS (7 sets, daily range): BP systolic 103–127; BP diastolic 57–61
[2018-05-05 11:41] LABS: HEMATOCRIT 36.6 % (42.0-54.0); HEMOGLOBIN 11.8 g/dL (13.5-17.5); MCH 28.3 pg (26.0-34.0); MCHC 32.2 g/dL (31.0-37.0); MCV 87.8 fL (80.0-100.0); RBC 4.17 10x6/uL (4.20-6.10); RDW 13.6 % (11.5-14.5); WBC 6.7 10x3/uL (4.8-10.8)
[2018-05-05 12:03] LABS: ANION GAP 11.7 mmol/L (8-16); CALCIUM 7.7 mg/dL (8.5-10.1); CREATININE - SERUM 1.1 mg/dL (0.6-1.3); POTASSIUM - SERUM 3.7 mmol/L (3.5-5.1)
[2018-05-05] MEDS ORDERED: AMIODARONE HCL200 MG PO (15:06)
[2018-05-05] MEDS ORDERED: ASPIRIN EC81 M1 PO (15:07)
[2018-05-05] MEDS ORDERED: PRAVACHOL20 MG PO (15:09)
[2018-05-05] MEDS ORDERED: PERCOCET 5-3251 TAB PO (15:14)
--- NOTE | 2018-05-05 15:17 | MORECARE ---
CASE MANAGEMENT DISCHARGE SUMMARY PATIENT: JANAY AUGUST UNIT: [id number] ADM DATE: 04/24/18 AGE: 68 : 54 SEX: M ROOM/BED: D[facility] AUTHOR: ALLA,DOC PHYSICIAN: REFERRING PHYSICIAN: NOAH JIMÉNEZ MD DATE OF SERVICE: 05/05/18 Discharge Plan Patient Name: JANAY AUGUST Facility: [facility]:[place] : 1950 Planned Disposition: Home Anticipated Discharge Date: Discharge Date: Expected LOS: Initial Reviewer: [email or web address] Initial Review Date: 04/24/2018 Generated: 05/05/18 4:16 pm Comments DCP- Discharge Planning Updated by [email or web address]: Dori Ramachandran on 05/05/18 2:[address] Patient Name: JANAY AUGUST Encounter No: [id number] : 1950 Primary Insurance: MEDICARE A & B Anticipated DC Date: Planned Disposition: Home External Planned Provider: : DCP follow-up note: Patient and family in agreement with discharge plan. No changes to plan. D/C IMM explained and served 05/05/18 @ 1503. Case management will follow and assist as needed. Dori Ramachandran DCP- Discharge Planning Updated by [email or web address]: Kurtis Calderón on 04/24/18 2:[address] Patient Name: JANAY AUGUST Admission Status: ER Accout number: [id number] Admission Date: 04-24-2018 : 1950 Admission Diagnosis: Attending: NOAH JIMÉNEZ Current LOS: 1 Anticipated DC Date: Planned Disposition: Home Primary Insurance: MEDICARE A & B Discharge Planning Comments: CM RECEIVED ORDER FOR "GET POA FOR PT WITH HIS BROTHER TODAY." CM MET WITH PT IN ROOM TO DISCUSS DISCHARGE PLANNING AND NEEDS. PT REPORTS LIVING AT HOME INDEPENDENTLY AND ALONE. PT HAS A CANE HE USES "[employer]" AND NO MEDICAL EQUIPMENT PROVIDER PREFERENCE. PT HAS NO OUTSIDE SERVICES ASSISTING IN THE HOME. CM DISCUSSED AVAILABILITY OF HOME HEALTH, REHAB SERVICES AND MEDICAL EQUIPMENT. PT DENIES DISCHARGE NEEDS AT THIS TIME, REPORTS PLAN TO RETURN HOME ALONE, REPORTS HIS NEICE WILL PICK HIM UP FOR DISCHARGE HOME. PT IS HAVING OPEN HEART SURGERY IN THE MORNING AND WANTS TO NAME HIS SHAKIR GOMEZ POWER OF CERTIFIED ALCOHOL COUNSELOR IN CASE IT IS NEEDED. CM ASSISTED PT WITH COMPLETING MEDICAL POWER OF CERTIFIED ALCOHOL COUNSELOR AND HAVING IT NOTARIZED. COPY TO CHART, ORIGINAL TO PT. PT PLANS TO DISCHARGE HOME ALONE, FAMILY TO TRANSPORT, NO KNOWN DISCHARGE NEEDS AT THIS TIME. POA COMPLETED AND IN CHART. CM TO FOLLOW AND ASSIST IF NEEDED. Timber Trimmer: Kurtis Calderón DCPIA - Discharge Planning Initial Assessment Updated by [email or web address]: Kurtis Calderón on 04/24/18 4:54 pm * Is the patient Alert and Oriented? Yes * How many steps to enter\\exit or inside your home? * PCP DR. RIVERA * Pharmacy [facility] * Preadmission Environment Home Alone * ADLs Independent * Equipment Cane * Other Equipment NONE * List name and contact numbers for known caregivers / representatives who currently or will assist patient after discharge: JASON HEIN, * Verbal permission to speak to the caregivers and representatives has been obtained from the patient. N/A * Community resources currently utilized None * Please name any agencies selected above. NONE * Additional services required to return to the preadmission environment? No * Can the patient safely return to the preadmission environment? Yes * Has this patient been hospitalized within the prior 30 days at any hospital? No Coverage Notice Reviewer: [id number] Glenn Ramachandran Notice Issued Date-Time: 05/05/2018 15:03 Notice Type: IM Discharge Notice Notice Delivered To: Patient Relationship to Patient: Self Oven Tender Name: Delivery Method: HAND - Hand Delivered Omaira Days: Prior Verbal Notification: Recipient Understood Notice: Yes Recipient Signature: Yes Med Rec Note Co-signed by Attending: Coverage Notice Comment: Last DP export: 04/24/18 3:04 pm Patient Name: JANAY AUGUST Page [id number] at 1517 All edits/amendments must be made on the electronic document DICTATION DATE: 05/05/181515 FLARE STITCHER: BARRY 05/05/181515 RPT#: [id number] DC DATE: STATUS: ADM IN [facility] [address] [place] [address] END OF REPORT
--- NOTE | 2018-05-06 13:52 | MORECARE ---
CASE MANAGEMENT DISCHARGE SUMMARY PATIENT: JANAY AUGUST UNIT: [id number] ADM DATE: 04/24/18 AGE: 68 : 54 SEX: M ROOM/BED: D[facility] AUTHOR: ALLA,DOC PHYSICIAN: REFERRING PHYSICIAN: NOAH JIMÉNEZ MD DATE OF SERVICE: 05/06/18 Discharge Plan Patient Name: JANAY AUGUST Facility: [facility]:[place] : 1950 Planned Disposition: Home Anticipated Discharge Date: Discharge Date: 05/05/2018 Expected LOS: Initial Reviewer: [email or web address] Initial Review Date: 04/24/2018 Generated: 05/06/18 2:52 pm Comments DCP- Discharge Planning Updated by [email or web address]: Dori Ramachandran on 05/05/18 2:[address] Patient Name: JANAY AUGUST Encounter No: [id number] : 1950 Primary Insurance: MEDICARE A & B Anticipated DC Date: Planned Disposition: Home External Planned Provider: : DCP follow-up note: Patient and family in agreement with discharge plan. No changes to plan. D/C IMM explained and served 05/05/18 @ 1503. Case management will follow and assist as needed. Dori Ramachandran DCP- Discharge Planning Updated by [email or web address]: Kurtis Calderón on 04/24/18 2:[address] Patient Name: JANAY AUGUST Admission Status: ER Accout number: [id number] Admission Date: 04-24-2018 : 1950 Admission Diagnosis: Attending: NOAH JIMÉNEZ Current LOS: 1 Anticipated DC Date: Planned Disposition: Home Primary Insurance: MEDICARE A & B Discharge Planning Comments: CM RECEIVED ORDER FOR "GET POA FOR PT WITH HIS BROTHER TODAY." CM MET WITH PT IN ROOM TO DISCUSS DISCHARGE PLANNING AND NEEDS. PT REPORTS LIVING AT HOME INDEPENDENTLY AND ALONE. PT HAS A CANE HE USES "[employer]" AND NO MEDICAL EQUIPMENT PROVIDER PREFERENCE. PT HAS NO OUTSIDE SERVICES ASSISTING IN THE HOME. CM DISCUSSED AVAILABILITY OF HOME HEALTH, REHAB SERVICES AND MEDICAL EQUIPMENT. PT DENIES DISCHARGE NEEDS AT THIS TIME, REPORTS PLAN TO RETURN HOME ALONE, REPORTS HIS NEICE WILL PICK HIM UP FOR DISCHARGE HOME. PT IS HAVING OPEN HEART SURGERY IN THE MORNING AND WANTS TO NAME HIS SHAKIR GOMEZ POWER OF DRY DIP WORKER IN CASE IT IS NEEDED. CM ASSISTED PT WITH COMPLETING MEDICAL POWER OF DRY DIP WORKER AND HAVING IT NOTARIZED. COPY TO CHART, ORIGINAL TO PT. PT PLANS TO DISCHARGE HOME ALONE, FAMILY TO TRANSPORT, NO KNOWN DISCHARGE NEEDS AT THIS TIME. POA COMPLETED AND IN CHART. CM TO FOLLOW AND ASSIST IF NEEDED. Engineer Assistant: Kurtis Calderón DCPIA - Discharge Planning Initial Assessment Updated by [email or web address]: Kurtis Calderón on 04/24/18 4:54 pm * Is the patient Alert and Oriented? Yes * How many steps to enter\\exit or inside your home? * PCP DR. RIVERA * Pharmacy [facility] * Preadmission Environment Home Alone * ADLs Independent * Equipment Cane * Other Equipment NONE * List name and contact numbers for known caregivers / representatives who currently or will assist patient after discharge: JASON HEIN, * Verbal permission to speak to the caregivers and representatives has been obtained from the patient. N/A * Community resources currently utilized None * Please name any agencies selected above. NONE * Additional services required to return to the preadmission environment? No * Can the patient safely return to the preadmission environment? Yes * Has this patient been hospitalized within the prior 30 days at any hospital? No Coverage Notice Reviewer: [id number] Glenn Ramachandran Notice Issued Date-Time: 05/05/2018 15:03 Notice Type: IM Discharge Notice Notice Delivered To: Patient Relationship to Patient: Self Nurse Emergency Room Name: Delivery Method: HAND - Hand Delivered Omaira Days: Prior Verbal Notification: Recipient Understood Notice: Yes Recipient Signature: Yes Med Rec Note Co-signed by Attending: Coverage Notice Comment: Last DP export: 05/05/18 2:17 p Patient Name: JANAY AUGUST Page [id number] at 1352 All edits/amendments must be made on the electronic document DICTATION DATE: 05/06/[address] CONTRACTOR: BARRY 05/06/18 1351 RPT#: [id number] DC DATE:05/05/18 STATUS: DIS IN [facility] [address] [place] [address] END OF REPORT
== END 2018-05-05 17:54 | disposition home or self-care (01) | DRG 233 ==
LOC: D.ER 21:08 → D.M2 22:45 → OBSVTIME 22:45 → D.M2 22:45 → D.CVICU 04-24 15:28 → D.M2 04-24 15:28 → D.CVICU 04-25 09:38
PROVIDERS: Family Medicine; Internal Medicine Cardiovascular Disease; Internal Medicine Nephrology; Thoracic Surgery (Cardiothoracic Vascular Surgery); ADMIT Emergency Medicine; ATTEND Emergency Medicine
PROC: B2141ZZ Fluoroscopy of Right Heart using Low Osmolar Contrast (ICD-10-PCS; 2018-04-24)
PROC: 4A023N7 Measurement of Cardiac Sampling and Pressure, Left Heart, Percutaneous Approach (ICD-10-PCS; 2018-04-24)
PROC: B2111ZZ Fluoroscopy of Multiple Coronary Arteries using Low Osmolar Contrast (ICD-10-PCS; principal; 2018-04-24 07:30)
PROC: 02100Z9 Bypass Coronary Artery, One Artery from Left Internal Mammary, Open Approach (ICD-10-PCS; 2018-04-25)
PROC: 021309W Bypass Coronary Artery, Four or More Arteries from Aorta with Autologous Venous Tissue, Open Approach (ICD-10-PCS; 2018-04-25)
PROC: 06BP4ZZ Excision of Right Saphenous Vein, Percutaneous Endoscopic Approach (ICD-10-PCS; 2018-04-25)
PROC: 5A1221Z Performance of Cardiac Output, Continuous (ICD-10-PCS; 2018-04-25)
PROC: B24BZZ4 Ultrasonography of Heart with Aorta, Transesophageal (ICD-10-PCS; 2018-04-25)
PROC: 0DJ08ZZ Inspection of Upper Intestinal Tract, Via Natural or Artificial Opening Endoscopic (ICD-10-PCS; 2018-04-30)
DX: I21.4 Non-ST elevation (NSTEMI) myocardial infarction (principal); K29.71 Gastritis, unspecified, with bleeding; K22.11 Ulcer of esophagus with bleeding; F17.203 Nicotine dependence unspecified, with withdrawal; K56.7 Ileus, unspecified; I25.119 Atherosclerotic heart disease of native coronary artery with unspecified angina pectoris; E78.5 Hyperlipidemia, unspecified; I10 Essential (primary) hypertension; J45.909 Unspecified asthma, uncomplicated; I25.10 Atherosclerotic heart disease of native coronary artery without angina pectoris; R14.0 Abdominal distension (gaseous); E02 Subclinical iodine-deficiency hypothyroidism

== ENCOUNTER → 2018-07-23 15:04 | Outpatient (CLI) | payer MEDICARE ==
[2018-04-24 14:43] VITALS: BMI 35.5
[~2018-07-23 15:04] MED LIST: AMIODARONE HCL200 MG PO; ASPIRIN EC81 M1 PO; COREG 3.1253.125 MG PO; FLOMAX0.4 MG PO; LIPITOR80 MG PO; LISINOPRIL10 MG PO; OMEPRAZOLE20 M1 PO; PERCOCET 5-3251 TAB PO; PRAVACHOL20 MG PO; SEROQUEL50 MG PO; UNK BP MED; UNK INHALER; ZANAFLEX4 MG PO
[2018-07-23 15:39] LABS: HEMATOCRIT 49.4 % (42.0-54.0); HEMOGLOBIN 16.4 g/dL (13.5-17.5); MCH 28.9 pg (26.0-34.0); MCHC 33.2 g/dL (31.0-37.0); MEAN PLATELET VOLUME 8.4 fL (7.4-10.4); RBC 5.68 10x6/uL (4.20-6.10); WBC 5.1 10x3/uL (4.8-10.8)
== END | disposition home or self-care (01) ==
LOC: D.RAD 15:04
PROVIDERS: ATTEND Thoracic Surgery (Cardiothoracic Vascular Surgery)
DX: D64.9 Anemia, unspecified (principal); J90 Pleural effusion, not elsewhere classified

== ENCOUNTER 2019-08-13 12:20 | Emergency (ER) | payer MEDICARE ==
[~2019-08-13] VITALS: Ht 162.6 cm; Wt 93.6 kg
[2019-08-13 12:21] VITALS: Ht 162.6 cm; Wt 93.6 kg
[2019-08-13] MEDS ORDERED: CYCLOBENZAPRINE10 MG PO (12:37)
[2019-08-13 13:22] VITALS: BP 142/81
== END 2019-08-13 13:23 | disposition home or self-care (01) ==
LOC: D.ER 12:20 → EDBD 12:20 → D.ER 13:23
DX: M54.5 Low back pain (principal); M54.32 Sciatica, left side; I25.2 Old myocardial infarction; J45.909 Unspecified asthma, uncomplicated; Z72.0 Tobacco use